=== PATIENT | female | born 2000 | race Caucasian/White ===

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

== ENCOUNTER 2022-05-07 17:23 | Outpatient (REF) | payer MEDICAID, SELFPAY ==
[2022-05-09 15:32] LABS: Chlamydia Result Negative (Negative); GC Result Negative (Negative)
== END 2022-05-07 17:24 | disposition home or self-care (01) ==
LOC: LBN 17:23
PROVIDERS: PCP Nurse Practitioner Pediatrics; Visit Provider Advanced Practice Midwife
DX: N89.8 Other specified noninflammatory disorders of vagina (principal); Z11.3 Encounter for screening for infections with a predominantly sexual mode of transmission
CPT/HCPCS: 87491; 87591; 87480; 87510; 87660

== ENCOUNTER 2022-05-30 06:16 | Emergency (ER) | payer MEDICAID, SELFPAY ==
--- NOTE | 2022-05-30 06:15 | RT.EKG_ITS ---
APPROVED REPORT Exam: Resting ECG Reason for Exam: chest pain Patient Location: E HR:65 bpm ECG Measurements Heart Rate 65 AXIS HI 141 P 58 QRSd 84 QRS 69 QT 386 T 38 QTc 402 Conclusion Sinus rhythm...normal P axis, V-rate 60- 99
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
[2022-05-30 06:48] VITALS: BP 132/77; PULSE 66; RESP 16; TEMP 36.9; O2SAT 97
[2022-05-30 07:20] LABS: Abs Immature Grans 0.02 10^3/uL (0.0-0.06); Absolute Basophil Count 0.02 10^3/uL (0.0-0.2); Absolute Lymphocyte Count 2.11 10^3/uL (1.2-3.4); Absolute Monocyte Count 0.44 10^3/uL (0.1-0.8); Absolute Neutrophil Count 5.78 10^3/uL (1.2-6.7); Basophils % 0.2; Eosinophils % 1.2; HCT 40.8 % (36.0-46.0); HGB 13.1 g/dL (11.2-15.7); Immature Grans % 0.2; Lymphocytes % 24.9; MCHC 32.1 % (32.0-36.0); MCV 94 fL (80-95); Monocytes % 5.2; Neutrophils % 68.3; Platelet Count 309 10^3/uL (130-400); RBC 4.36 10^6/uL (3.93-5.22); RDW 12.7 % (11.7-14.6); RDW-SD 43.9 fL; WBC 8.47 10^3/uL (4.4-10.8)
[2022-05-30 07:53] LABS: D-Dimer 149 ng/mlFEU (<500)
[2022-05-30 08:12] LABS: ALT 44 U/L (14-59); AST 21 U/L (15-37); Alkaline Phosphatase 82 U/L (46-116); Anion Gap 8.2 mmol/L (3-11); BUN 9 mg/dL (7-18); Bilirubin, Total 0.3 mg/dL (0.2-1.0); CO2 26.8 mmol/L (21.0-32.0); CREATININE 0.8 mg/dL (0.55-1.02); Calcium 9.3 mg/dL (8.5-10.1); Chloride 104 mmol/L (98-107); Estimated GFR 108.11 (mL/min/1.73m2); Glucose 92 mg/dL (74-106); Magnesium 1.8 mg/dL (1.8-2.4); Potassium 4.1 mmol/L (3.5-5.1); Sodium 139 mmol/L (136-145); Total Protein 7.4 g/dL (6.4-8.2); Troponin I < 50 ng/L (<or=60)
--- NOTE | 2022-05-30 08:30 | DI.RAD_ITS ---
Exam(s) XR CHEST 2V PA LATERAL EXAM: XR CHEST 2V PA LATERAL CLINICAL HISTORY: left chest pain TECHNIQUE: 2D digital imaging was performed. COMPARISON: No exams were available for comparison FINDINGS: The heart is not enlarged. The lungs are clear and well expanded. No pleural effusion seen. Mediastin al contours appear intact. IMPRESSION: Normal chest. RADIATION DOSE DELIVERED: Total DLP
--- NOTE | 2022-05-30 09:26 | W.EDPROG ---
Date of service: 05/30/22 Time of Service: 09:26 Medical Decision Making labs and imaging unremarkable, patient pain free and stable, clear lung sounds, soft nontender abdomen. Given pain started last night do not feel delta troponin indicated, heart score less then 3 so appropriate for outpatient management, adivsed to f/u with pcp and return precautions given Imaging Data Radiologic Study: Attestation: I personally reviewed and interpreted this imaging study as follows: Imaging: X-Ray Radiologist's impression: no acute findings Lab Data Lab results reviewed: Yes I reviewed the patient's lab results. Sign Out Sign Out Data: Sign Out Comment: Follow-up labs and chest x-ray and reassess patient for disposition Last updated by Juan Graham MD at 05/30/22 07:55 Discharge Plan Disposition Patient Disposition: HOME Condition: Stable Discharge Details Clinical Impression: Chest pain Primary Care Provider: Pascual Joel ED Provider: Jeffrey Powers Home Meds and New Rx's Prescriptions: Continued Nexplanon 68 mg implant 1 implant SBD ONCE clotrimazole-betamethasone 1-0.05 % cream 1 applic topical BID 14 Days Qty: 45 3RF metronidazole 500 mg tablet 1 tab PO BID Label Comments: TAKE 1 TABLET BY MOUTH TWICE DAILY FOR 7 DAYS Discharge Instructions Instructions: Chest Pain (ED) Additional Instructions: your xray and blood work did not show concerning findings follow up with your primary care provider within 1 week if you feel more ill, have severe worsening pain or difficulty breathing return to the emergency department
[2022-05-30 09:30] VITALS: BP 103/89; PULSE 61; RESP 16; TEMP 36.8; O2SAT 99
== END 2022-05-30 09:38 | disposition home or self-care (01) ==
PROVIDERS: Student in an Organized Health Care Education/Training Program; Emergency Provider Emergency Medicine; PCP Nurse Practitioner Pediatrics
DX: R07.9 Chest pain, unspecified (principal); F17.290 Nicotine dependence, other tobacco product, uncomplicated
CPT/HCPCS: 36415; 80053; 81025; 93005; 99283; 71046; 83735; 84484; 85025; 85379; 93010; 99285

== ENCOUNTER 2024-01-28 04:38 | Emergency (ER) | payer MEDICAID, SELFPAY ==
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
[2024-01-28 04:38] VITALS: BP 142/75; PULSE 72; RESP 24; TEMP 36.6; O2SAT 98
[2024-01-28] MEDS: Omnipaque 350 MG/ML 100 ML BTL IJ (05:03)
[2024-01-28] MEDS: Normal Saline - Diluent 50 ML VIAL IJ (05:07)
[2024-01-28 05:13] LABS: Abs Immature Grans 0.04 10^3/uL (0.0-0.06); Absolute Basophil Count 0.02 10^3/uL (0.0-0.2); Absolute Eosinophil Count 0.25 10^3/uL (0.0-0.7); Absolute Lymphocyte Count 4.44 10^3/uL (1.2-3.4); Absolute Monocyte Count 0.49 10^3/uL (0.1-0.8); Absolute Neutrophil Count 7.02 10^3/uL (1.2-6.7); Basophils % 0.2 %; HCT 43.1 % (36.0-46.0); HGB 13.9 g/dL (11.2-15.7); Immature Grans % 0.3 %; Lymphocytes % 36.2 %; MCHC 32.3 % (32.0-36.0); MCV 96 fL (80-95); MPV 9.3 fL (8.0-11.0); Neutrophils % 57.3 %; Platelet Count 322 10^3/uL (130-400); RBC 4.49 10^6/uL (3.93-5.22); RDW 13.1 % (11.7-14.6); RDW-SD 46.5 fL; WBC 12.26 10^3/uL (4.4-10.8)
[2024-01-28] MEDS: Ondansetron 4 MG/2 ML VIAL IVP ×2 (05:20→08:19)
[2024-01-28 05:21] VITALS: PULSE 62; O2SAT 99
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
[2024-01-28 05:22] VITALS: BP 126/75; PULSE 59; PULSE 62; RESP 11; O2SAT 98
[2024-01-28 05:25] LABS: PTT Activated 27.2 sec (23.6-32.8); Prothrombin Time 9.8 sec (9.1-11.1)
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
[2024-01-28 05:31] VITALS: BP 122/66; PULSE 55; PULSE 60; RESP 17; O2SAT 97
[2024-01-28 05:32] VITALS: PULSE 68; RESP 25; O2SAT 97
[2024-01-28 05:33] LABS: ALT 48 U/L (14-59); AST 24 U/L (15-37); Albumin 4.3 g/dL (3.4-5.0); Alkaline Phosphatase 85 U/L (46-116); Anion Gap 13.5 mmol/L (3-11); BUN 7 mg/dL (7-18); Bilirubin, Total 0.3 mg/dL (0.2-1.0); CO2 23.5 mmol/L (21.0-32.0); CREATININE 0.8 mg/dL (0.55-1.02); Calcium 9.5 mg/dL (8.5-10.1); Chloride 106 mmol/L (98-107); ETHANOL BLOOD 59.8 mg/dL (<10); Estimated GFR 107.44 (mL/min/1.73m2); Glucose 116 mg/dL (74-106); Lipase 16 U/L (16-77); Potassium 3.5 mmol/L (3.5-5.1); Sodium 143 mmol/L (136-145); Total Protein 8.1 g/dL (6.4-8.2)
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
[2024-01-28] MEDS: ACETAMINOPHEN 1,000 MG/100 ML BTL 400 MG IVPB (05:40)
[2024-01-28] MEDS: Normal Saline 1,000 ML 1000 ML IV (06:01)
[2024-01-28] MEDS: Hydrogen Peroxide 3% 480 ML BTL (06:01)
[2024-01-28 06:48] LABS: Bilirubin Negative (Negative); Blood Trace-lysed (Negative); Clarity Sl Cloudy (Clear); Glucose Negative (Negative); Ketones Negative (Negative); Leukocyte Esterase Small (Negative); Nitrite Positive (Negative); Urobilinogen 0.2 mg/dL (Up to 0.2); pH 6.5 (5-8)
[2024-01-28 06:57] LABS: Bacteria Many HPF (Negative); C & S Indicated? Yes; Casts Negative LPF (Negative); Crystals Negative HPF (Negative); Epithelial Cells Few HPF (Negative); Mucus Negative (Negative); RBC 0-2 HPF (0-2)
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
[2024-01-28 07:01] LABS: *AMPHETAMINES SCREEN URINE Negative (Negative); *BARBITURATES SCREEN URINE Negative (Negative); *BENZODIAZEPINES SCREEN URINE Negative (Negative); Cannabinoids THC Positive (Negative); Cocaine Screen,Urine Negative (Negative); METHADONE URINE SCREEN Negative (Negative); OPIATES URINE SCREEN Negative (Negative)
[2024-01-28 07:05] LABS: Tricyclic Antidepressants Negative (Negative)
[2024-01-28] MEDS: Cephalexin 500 MG CAP PO (08:19)
[2024-01-28] MEDS: Ondansetron O.D.T. 4 MG TABEF, 3 TABS/BTL PO (08:19)
== END 2024-01-28 08:37 | disposition home or self-care (01) ==
PROVIDERS: Emergency Provider Student in an Organized Health Care Education/Training Program
DX: F10.120 Alcohol abuse with intoxication, uncomplicated (principal); S01.01XA Laceration without foreign body of scalp, initial encounter; N39.0 Urinary tract infection, site not specified; S06.0X0A Concussion without loss of consciousness, initial encounter; S00.03XA Contusion of scalp, initial encounter; F17.290 Nicotine dependence, other tobacco product, uncomplicated; Y90.2 Blood alcohol level of 40-59 mg/100 ml; V47.6XXA Car passenger injured in collision with fixed or stationary object in traffic accident, initial encounter; Z23 Encounter for immunization
CPT/HCPCS: 12001; 36415; 74177; 80053; 80307; 83690; 87077; 90471; 90715; 96361; 96365; 96375; 96376; 99285; 70450; 70486; 71260; 72125; 73610; 80320; 81003; 81015; 85025; 85610; 85730; 87086; 87186; J0131; J2405; J3490

== ENCOUNTER 2024-02-16 13:20 | Emergency (ER) | payer MEDICAID, SELFPAY ==
[2024-02-16 13:27] VITALS: BP 145/90; PULSE 86; RESP 16; TEMP 36.9; O2SAT 99
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
--- NOTE | 2024-02-16 16:08 | W.EDPROG ---
Date of service: 02/16/24 Time of Service: 16:00 Medical Decision Making Please see previous documentation for initial presentation and consult with surgery. Patient signed out to me pending surgical consult for concern of inappropriate wound healing and potential need for surgical revision. Spoke with Dr. Moyer whom stated that patient will go to the OR tomorrow for washout and revision. Patient instructed to be n.p.o. after midnight and that day surgery will contact her for arrival time. After discussion of diagnosis and plan of care patient has no further needs, questions, or concerns and states clear understanding to return to the emergency department for any worsening symptoms. This documentation was generated using Virtual Computer dictation system, please disregard any oddities of phrase or misspellings. Quality:SDOH Health Related Social Needs: Health related social needs risk of homeless, material hardship, food insecurity, transpo insecurity Exam Const General: cooperative, no acute distress and not ill appearing Orientation: alert, awake and oriented x3 HENMT Mouth: moist mucous membranes Resp Effort & Inspection: normal respiratory effort, able to speak in complete sentences and no respiratory distress Neuro General: patient alert, patient awake, patient oriented x3 and moves all extremities Sign Out Sign Out Data: Sign Out Comment: Dr. Moeyr coming to evaluate at 1600, complex partially healed R frontal/parietal scalp laceration Last updated by Diogo Brown PA at 02/16/24 15:37 Discharge Plan Disposition Patient Disposition: Home Discharge Details Clinical Impression: Laceration of scalp with complication Primary Care Provider: Unknown,Unknown ED Provider: Dread Salinas Home Meds and New Rx's Prescriptions: No Action Nexplanon 68 mg implant 1 implant subdermal ONCE Rx Instructions: as a single dose clotrimazole-betamethasone 1-0.05 % cream 1 applic topical BID 14 Days Qty: 45 3RF Discharge Instructions Additional Instructions: It is very important that you do not eat anything after midnight tonight. Day surgery department will contact you for arrival time and Dr. Moyer will be performing a procedure as discussed. If you have any new or significant worsening of symptoms feel free to return the emergency department for reassessment Referrals: Benita Moyer DO [OSTEOPATHIC DOCTOR] - 1 day Discharge Data Discharge Date/Time-TO BE ENTERED AT DEPARTURE: 02/16/24 16:30
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
== END 2024-02-16 16:30 | disposition home or self-care (01) ==
PROVIDERS: Emergency Provider Nurse Practitioner Family
DX: S01.01XD Laceration without foreign body of scalp, subsequent encounter; Z48.02 Encounter for removal of sutures; W19.XXXD Unspecified fall, subsequent encounter
CPT/HCPCS: 00123

== ENCOUNTER 2024-02-17 10:39 | Day surgery (SDC) | payer MEDICAID, SELFPAY ==
[2024-02-17] VITALS (15 sets, daily range): BP systolic 112–133; BP diastolic 57–95; PULSE 52–90; RESP 16–23; TEMP 35.9–36.6; O2SAT 96–100; BMI 35.6
[2024-02-17] MEDS: Lactated Ringers 1,000 ML 80 ML IV (11:11)
[2024-02-17] MEDS: Gabapentin 300 MG CAP 600 MG PO (11:12)
[2024-02-17] MEDS: Acetaminophen 500 MG TAB 1000 MG PO (11:12)
--- NOTE | 2024-02-17 11:22 | W.ANESPRE ---
General Info Date of Service Date Performed: 02/17/24 Height: 5 ft 3 in Weight: 91.1 kg Body Mass Index (BMI): 35.6 Surgical Procedure: Operation Date: 02/17/24 11:40 Proposed Procedure Side Surgeon p Drainage/Wound exploration and revision of right scalp wound dehisence Right Benita Moyer DO Meds Allergies and Home Medications Allergies Allergy/AdvReac Type Severity Reaction Status Date / Time No Known Allergies Allergy Unverified 02/17/24 10:46 Home Medication Medication Instructions Recorded clotrimazole-betamethasone 1 1 applic topical BID 2 weeks #45 05/07/22 %-0.05 % topical cream grams etonogestrel 68 mg subdermal 1 implant subdermal ONCE 07/15/22 implant (Nexplanon) Current Visit Medications: Current Medications Generic Name Dose Route Start Last Admin Trade Name Freq PRN Reason Stop Dose Admin Acetaminophen 1,000 mg 02/17/24 06:00 02/17/24 11:12 Acetaminophen 500 Mg Tab PO 03/18/24 23:59 1,000 mg PREOP GRACIA Administration Gabapentin 600 mg 02/17/24 06:00 02/17/24 11:12 Gabapentin 300 Mg Cap PO 03/18/24 23:59 600 mg PREOP GRACIA Administration Ringer's Solution 1,000 mls @ 80 mls/hr 02/17/24 06:00 02/17/24 11:11 IV 03/18/24 23:59 80 mls/hr INFUSION GRACIA Administration Cefazolin Sodium/Dextrose 2 gm in 50 mls @ 100 mls/hr 02/17/24 06:00 Ancef Duplex IVPB 03/18/24 23:59 PREOP GRACIA IV Miscellaneous Supplies 1 each 02/17/24 06:00 Iv Access IV 03/18/24 23:59 DIRECTED GRACIA Sodium Chloride 0 ml 02/17/24 06:00 Normal Saline Flush 10 Ml Syr IV 03/18/24 23:59 PRN PRN Sodium Chloride 0 ml 02/17/24 06:00 Normal Saline 10 Ml Vial IJ 03/18/24 23:59 DIRECTED PRN Sterile Water 0 ml 02/17/24 06:00 Water,Injection,Sterile 10 Ml Vial IJ 03/18/24 23:59 DIRECTED PRN PFSH Active Problems Active Problems: Problem Status Onset Code Smoker F17.200 Hematoma of frontal scalp S00.03XA Open wound T14.8XXA Laceration of scalp with complication S01.01XA Hematoma of parietal scalp S00.03XA Concussion S06.0XAA UTI (urinary tract infection) N39.0 Laceration of scalp S01.01XA Alcohol intoxication F10.929 Nexplanon insertion Z30.017 Other specified contraceptive management Z30.8 Weight gain R63.5 Tinea cruris B35.6 Epigastric abdominal pain R10.13 Nausea R11.0 Yeast vaginitis B37.3 Screen for STD (sexually transmitted disease) Z11.3 Acne L70.[address] Z97.5 General counseling and advice for contraceptive management Z30.09 Body mass index equal to or greater than 95th percentile for age in pediatric patient 12/15/14 Z68.54 Under-bite 12/15/14 M26.19 Routine child health exam 01/16/17 Z00.129 Menorrhagia 01/04/15 N92.0 BMI (body mass index), pediatric, 85% to less than 95% for age 0501/16/17 Z68.53 Academic underachievement 12/15/14 Z55.3 Medical History Medical History General counseling and advice for contraceptive management Migraine rare, vision loss with 1 of them Chronic constipation Febrile convulsion Tobacco Smoking/Tobacco Use Status: Current every day Tobacco Type: e-cigarettes Alcohol Alcohol Intake: current Alcohol intake frequency: holidays/special occasions only Substance Use Substance use type: marijuana Details: Yesterday Lase Dose Vital Signs and Lab Results Vital Signs Most Recent Vital Signs in EMR: Most Recent Vital Signs Temp Pulse Resp BP Pulse Ox 36.5 C 72 18 125/78 98 02/17/24 11:04 02/17/24 11:04 02/17/24 11:04 02/17/24 11:04 02/17/24 11:04 Point of Care Results Point of Care Results: POC- Test(urine) Negative 02/17/24 11:04 Lab Results Blood Type / Crossmatch: No Data to Display Complete Blood Count: White Blood Count 12.26 10^3/uL (4.4-10.8) H 01/28/24 05:00 Red Blood Count 4.49 10^6/uL (3.93-5.22) 01/28/24 05:00 Hemoglobin 13.9 g/dL (11.2-15.7) 01/28/24 05:00 Hematocrit 43.1 % (36.0-46.0) 01/28/24 05:00 Platelet Count 322 10^3/uL (130-400) 01/28/24 05:00 Complete Metabolic Panel: Sodium 143 mmol/L (136-145) 01/28/24 05:00 Potassium 3.5 mmol/L (3.5-5.1) 01/28/24 05:00 Chloride 106 mmol/L (98-107) 01/28/24 05:00 Carbon Dioxide 23.5 mmol/L (21.0-32.0) 01/28/24 05:00 BUN 7 mg/dL (7-18) 01/28/24 05:00 Creatinine 0.8 mg/dL (0.55-1.02) 01/28/24 05:00 Est GFR (CKD-EPI 2020) 107.44 (mL/min/1.73m2) 01/28/24 05:00 Calcium 9.5 mg/dL (8.5-10.1) 01/28/24 05:00 Albumin 4.3 g/dL (3.4-5.0) 01/28/24 05:00 Glucose 116 mg/dL (74-106) H 01/28/24 05:00 Liver Function Panel: Alanine Aminotransferase (ALT/SGPT) 48 U/L (14-59) 01/28/24 05:00 Aspartate Amino Transf (AST/SGOT) 24 U/L (15-37) 01/28/24 05:00 Coagulation Panel: INR International Normalized Ratio 1.0 (0.9-1.1) 01/28/24 05:00 Prothrombin Time 9.8 sec (9.1-11.1) 01/28/24 05:00 Activated Partial Thromboplast Time 27.2 sec (23.6-32.8) 01/28/24 05:00 Cardiac Panel: No Data to Display Arterial Blood Gas: No Data to Display Venous Blood Gas: No Data to Display Pancreas Panel: Lipase 16 U/L (16-77) 01/28/24 05:00 Thyroid Panel: No Data to Display Infectious Disease: No Data to Display Blood Cultures: No Data to Display Toxicology Panel: Ethyl Alcohol Level 59.8 mg/dL (<10) H 01/28/24 05:00 Urine Amphetamines Screen Negative (Negative) 01/28/24 06:30 Urine Benzodiazepines Screen Negative (Negative) 01/28/24 06:30 Urine Barbiturates Screen Negative (Negative) 01/28/24 06:30 Urine Cocaine Screen Negative (Negative) 01/28/24 06:30 Urine Methadone Screen Negative (Negative) 01/28/24 06:30 Urine Opiates Screen Negative (Negative) 01/28/24 06:30 Ur Tricyclic Antidepressants Screen Negative (Negative) 01/28/24 06:30 Ur Tetrahydrocannabinol (THC) Scrn Positive (Negative) A 01/28/24 06:30 Panel: No Data to Display Imaging and Studies Imaging and Studies Study information below may be from another EMR and interpreted by another provider. Please see original notes in EMR for more complete details. EKG Summary: 05/30/22: Exam: Resting ECG Reason for Exam: chest pain Patient Location: E HR:65 bpm ECG Measurements Heart Rate 65 AXIS CO 141 P 58 QRSd 84 QRS 69 QT 386 T38 QTc 402 Conclusion Sinus rhythm...normal P axis, V-rate 60- 99 I have reviewed and I agree with the emergency room physician's ECG interpretation. Anesthesia Assessment and Plan Anesthesia History Personal History: No History of General Anesthesia Family History: No Family History of Anesthesia Complications Exercise Tolerance Exercise Tolerance: Metabolic Equivalents>4 Pertinent Negatives Pertinent Negatives: No Symptoms of GERD, No Major Cardiovascular Symptoms or Complaints and No Major Pulmonary Symptoms or Complaints Cardiac & Pulmonary Exam Cardiac Exam: Normal S1/S2 Heart Sounds Pulmonary Exam: Clear Bilateral Breath Sounds Implantable Cardiac Device Does patient have a Pacemaker or an ICD?: No Airway Exam Known Difficult Airway: No Mallampati Class: 2 Mouth Opening: Normal (> 3cm) Thyromental Distance: Greater than 3 cm Neck Range of Motion: Full ROM Neck Circumference: Normal Teeth Condition: Normal Dentition Airway Comments: Significant underbite ASA Classification ASA Score: ASA 2 Emergency Case?: No NPO Status NPO Status: NPO Clears >2 hours, Solids >8 hours Status Status: Negative HCG Anesthesia Plan Resuscitation Status: Full Code Anesthesia Technique: General Anesthesia Airway Planned: Endotracheal Tube Monitors Used: Standard Monitors
[2024-02-17] MEDS: ceFAZolin 2 GM/50 ML BAG IVPB (13:00)
[2024-02-17] MEDS: Lidocaine 1% Multi-Dose W/EPI 1/100,000 50 ML VIAL (13:11)
--- NOTE | 2024-02-17 14:25 | W.ANESPOSTOP ---
Postoperative Evaluation Date, Time and Location Date Performed: 02/17/24 Time Performed: 14:21 Patient Location: PACU Vital Signs Most Recent Imported Vital Signs: Most Recent Vital Signs Temp Pulse Resp BP Pulse Ox 36.5 C 81 18 133/92 H 97 02/17/24 14:20 02/17/24 14:20 02/17/24 14:20 02/17/24 14:20 02/17/24 14:20 Pain Score Most Recent Pain Score: Most Recent Pain Score Pain Level 2 02/17/24 14:20 Assessment Mental Status: Awake (Alert & Oriented to Patient Baseline) Airway and Respiratory Function: Patent airway with normal (patient baseline) respiratory exam Cardiovascular Function: Hemodynamically Stable Hydration Status: Adequately Hydrated Nausea & Vomiting: No Nausea or Vomiting Pain: Pain is tolerable per patient Peripheral Nerve Block: Patient did not receive a nerve block
--- NOTE | 2024-02-17 14:43 | W.PM.DSUDISC ---
Date of service: 02/17/24 Time of Service: 14:43 Discharge Plan Disposition Patient Disposition: Home Condition: Good Discharge Details Attending Provider: Benita Moyer Primary Care Provider: Unknown,Unknown Home Meds and New Rx's Prescriptions: No Action Nexplanon 68 mg implant 1 implant subdermal ONCE Rx Instructions: as a single dose clotrimazole-betamethasone 1-0.05 % cream 1 applic topical BID 14 Days Qty: 45 3RF Discharge Instructions Additional Instructions: Post-Op Instructions Instructions for Everyone who is given Anesthesia: For your safety, please do the following for the next twenty-four (24) hours: *Do Not operate a motor vehicle (car, truck, motorcycle, etc.) *Do Not drink alcoholic beverages or use any recreational drugs for the first 24 hours or while taking pain medications. The medications in your body may have a reaction that can be dangerous. *Do Not make any important decisions or sign any important papers. Follow up: Friday02/23/24 @ 10:45 ACTIVITY: The day of surgery should be spent resting. However, you can be up for short periods of time, I.E., going to the bathroom or kitchen. Avoid lifting or straining. On the day following surgery, you can be up and about as desired. ? LIFTING: Restrict your lifting to no more than five (5) pounds for two weeks after surgery. ??We will decide when you are done with restrictions and when you can return to work, at your follow-up appointment.? ? DIET: There are no dietary restrictions following surgery. However, you may want to start with small amounts of liquids to avoid nausea the day of surgery. ? INCISION CARE: Your health care provider has covered your wound with a wet-to-dry dressing. With this type of dressing, a wet (or moist) gauze dressing is put on your wound and allowed to dry. Wound drainage and tissue can be removed when you take off the old dressing. Follow any instructions you are given on how to change the dressing. Use this sheet as a reminder. What to Expect at Home Your provider will tell you how often you should change your dressing at home. As the wound heals, you should not need as much gauze or packing gauze. Removing the Old Dressing Follow these steps to remove your dressing: ? Wash your hands thoroughly with soap and warm water before and after each dressing change. Remove the old dressing. If it is sticking to your skin, wet it with warm water to loosen it. -Shower as you normally would. Avoid getting shampoo in the wound- it will burn! ? Changing Your Dressing Follow these steps to put a new dressing on: ? Place the packing tape in your wound. Carefully fill in the wound and any spaces under the skin.? Use a cotton tip applicator to gently push the packing material into the wound. ? Cover the wet gauze or packing tape with a large dry dressing pad. Use tape hat to hold this dressing in place. ? Wash your hands again when you are finished. When to Call the Doctor Call your doctor if you have any of these changes around your wound: ? Worsening redness ? More pain ? Swelling ? Bleeding ? It is larger or deeper ? It looks dried out or dark ? The drainage is increasing ? The drainage has a bad smell Also call your doctor if: ? Your temperature is 100.5?F (38?C), or higher, for more than 4 hours ? Drainage is coming from or around the wound ? Drainage is not decreasing after 3 to 5 days ? Drainage is increasing ? Drainage becomes thick, stafford, yellow, or smells bad ? SIGNS OF INFECTION: It is not unusual to have some black and blue discoloration of the skin around the incision..? ?It will slowly disappear. If you have any increased redness, drainage, fever (above 100 degrees), please contact your doctor for an examination. ? DISCOMFORT: You may expect to have some mild discomfort at the incision sight. If severe pain develops you should contact your doctor for further instructions. ? DRIVING: NO driving for three (3) days after surgery, or if you are still taking narcotic pain medication.? ? MEDICATIONS: Alternate Tylenol 1000mg by mouth every 8 hours and Ibuprofen 600mg every 6 hours. ?Make sure you take ibuprofen with food and not on an empty stomach. ?Take the Tylenol and ibuprofen continuously for the first 72hrs- not just when you have pain.? Use the tramadol for breakthrough pain/pain >7.? Use ICE!?? Twenty minutes on, and then off, continuously for the first 72hours. If you are taking narcotic pain medication, follow the instructions on the label and do not drive. Pain medications can make you very constipated. Make sure you are moving your bowels daily. If not, take Miralax or Milk of Magnesia.?? Anesthesia makes you very constipated.? Take a dose of milk of magnesia the morning after surgery. ? REPORT: Unusual swelling, severe pain, unresolved nausea, signs of infection, or difficulty in urination to your surgeon. Follow up in clinic with Dr. Moyer as above? [phone] 5. If there are questions regarding the findings of your procedure, please contact your doctor 6. If you are unable to contact your doctor with a problem, contact the hospital at [phone]. 7. Continue all your regular medications unless directed otherwise. I understand the above instructions and have no questions. Signature of Patient or Adult Escort Name of Responsible Adult Escort Signature of Nurse Date/Time Stand Alone Forms: Anesthesia Discharge JaclynFaith [place] (DSU) Activity:: see above Remove Dressings/Wound Care:: 24 hours Shower/Bathe:: 24 hours Diet:: As Tolerated DS: Diagnosis Discharge Diagnosis (1) Foreign body head: Status: Acute (2) Laceration of scalp: Status: Acute (3) Laceration of scalp with complication: Status: Acute Asessment and Plan: The patient is doing well post-op from their evacuation of hematoma and wound revision of scalp. they are having no nausea or vomiting. They are tolerating liquids and a snack. The pt is not having any chest pain or SOB.? Their pain is adequately controlled. They have been able to urinate.? ?HEENT:? no eye pain/drainage/redness/swelling. Mild sore throat ?Cardio- NSR, no chest pain, BP stable- see VS record ?Pulm: no sob or productive cough. No hemoptysis ?Incision- dressing is c/d/i w/ no excessive bleeding or drainage ?I discussed with the patient the findings at the time of surgery and the patient?s progress. ?We reviewed expectations at home; what the patient could expect for recovery time, and in the post-operative period.? We discussed the importance of walking to avoid blood clots and pneumonia.? We discussed and reviewed the patient's post-operative wound care and dressing needs.?? We reviewed their step-conte pain management plan, Rx called to the pharmacy of their choice.? We reviewed activity and limitations-see discharge instructions. We reviewed warning signs, and when to seek medical attention- see d/c instructions.?? Patient was given a postoperative follow-up appointment. Patient verbalized understanding of their postoperative instructions, how do to take care of themselves and their incision, and the pain management plan. Please see discharge instructions.? (4) Open wound: Status: Acute (5) Hematoma of frontal scalp: Status: Acute
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
[2024-02-17] MEDS: Ketorolac 15 MG/ML VIAL IVP (15:05)
--- NOTE | 2024-02-17 15:08 | PDOC.DSDIS_ITS ---
Date of service: 02/17/24 Time of Service: 15:08 Discharge Plan Disposition Patient Disposition: Home Condition: Good Discharge Details Attending Provider: Benita Moyer Primary Care Provider: Unknown,Unknown Home Meds and New Rx's Prescriptions: No Action Nexplanon 68 mg implant 1 implant subdermal ONCE Rx Instructions: as a single dose clotrimazole-betamethasone 1-0.05 % cream 1 applic topical BID 14 Days Qty: 45 3RF Discharge Instructions Additional Instructions: Post-Op Instructions Instructions for Everyone who is given Anesthesia: For your safety, please do the following for the next twenty-four (24) hours: *Do Not operate a motor vehicle (car, truck, motorcycle, etc.) *Do Not drink alcoholic beverages or use any recreational drugs for the first 24 hours or while taking pain medications. The medications in your body may have a reaction that can be dangerous. *Do Not make any important decisions or sign any important papers. Follow up: Friday02/23/24 @ 10:45 ACTIVITY: The day of surgery should be spent resting. However, you can be up for short periods of time, I.E., going to the bathroom or kitchen. Avoid lifting or straining. On the day following surgery, you can be up and about as desired. ? LIFTING: Restrict your lifting to no more than five (5) pounds for one weeks after surgery. ??We will decide when you are done with restrictions and when you can return to work, at your follow-up appointment.? ? DIET: There are no dietary restrictions following surgery. However, you may want to start with small amounts of liquids to avoid nausea the day of surgery. ? INCISION CARE: Your health care provider has covered your wound with a wet-to-dry dressing. With this type of dressing, a wet (or moist) gauze dressing is put on your wound and allowed to dry. Wound drainage and tissue can be removed when you take off the old dressing. Follow any instructions you are given on how to change the dressing. Use this sheet as a reminder. What to Expect at Home Your provider will tell you how often you should change your dressing at home. As the wound heals, you should not need as much gauze or packing gauze. Removing the Old Dressing Follow these steps to remove your dressing: ? Wash your hands thoroughly with soap and warm water before and after each dressing change. Remove the old dressing. If it is sticking to your skin, wet it with warm water to loosen it. -Shower as you normally would. Avoid getting shampoo in the wound- it will burn! ? Changing Your Dressing Follow these steps to put a new dressing on: ? Place the packing tape in your wound. Carefully fill in the wound and any spaces under the skin.? Use a cotton tip applicator to gently push the pa cking material into the wound. ? Cover the wet gauze or packing tape with a large dry dressing pad. Use tape hat to hold this dressing in place. ? Wash your hands again when you are finished. When to Call the Doctor Call your doctor if you have any of these changes around your wound: ? Worsening redness ? More pain ? Swelling ? Bleeding ? It is larger or deeper ? It looks dried out or dark ? The drainage is increasing ? The drainage has a bad smell Also call your doctor if: ? Your temperature is 100.5?F (38?C), or higher, for more than 4 hours ? Drainage is coming from or around the wound ? Drainage is not decreasing after 3 to 5 days ? Drainage is increasing ? Drainage becomes thick, stafford, yellow, or smells bad ? SIGNS OF INFECTION: It is not unusual to have some black and blue discoloration of the skin around the incision..? ?It will slowly disappear. If you have any increased redness, drainage, fever (above 100 degrees), please contact your doctor for an examination. ? DISCOMFORT: You may expect to have some mild discomfort at the incision sight. If severe pain develops you should contact your doctor for further instructions. ? DRIVING: NO driving for 24 hrs after surgery. ? MEDICATIONS: Alternate Tylenol 1000mg by mouth every 8 hours and Ibuprofen 600mg every 6 hours. ?Make sure you take ibuprofen with food and not on an empty stomach. ?Take the Tylenol and ibuprofen continuously when you have pain.? Use ICE!?? Twenty minutes on, and then off, continuously for the first 72hours. If you are taking narcotic pain medication, follow the instructions on the label and do not drive. Pain medications can make you very constipated. Make sure you are moving your bowels daily. If not, take Miralax or Milk of Magnesia.?? Anesthesia makes you very constipated.? Take a dose of milk of magnesia the morning after surgery. ? REPORT: Unusual swelling, severe pain, unresolved nausea, signs of infection, or difficulty in urination to your surgeon. Follow up in clinic with Dr. Moyer as above? [phone] 5. If there are questions regarding the findings of your procedure, please contact your doctor 6. If you are unable to contact your doctor with a problem, contact the hospital at [phone]. 7. Continue all your regular medications unless directed otherwise. I understand the above instructions and have no questions. Signature of Patient or Adult Escort Name of Responsible Adult Escort Signature of Nurse Date/Time Stand Alone Forms: Anesthesia Discharge , Faith [place] (DSU) Activity:: see above Remove Dressings/Wound Care:: 24 hours Shower/Bathe:: 24 hours Diet:: As Tolerated Discharge Orders Discharge Orders: Discharge Order (Routine); Ordered 02/17/24 Ordered By: Benita Moyer DS: Diagnosis Discharge Diagnosis (1) Foreign body head: Status: Acute (2) Laceration of scalp: Status: Acute (3) Laceration of scalp with complication: Status: Acute (4) Open wound: Status: Acute (5) Hematoma of frontal scalp: Status: Acute
== END 2024-02-17 15:37 | disposition home or self-care (01) ==
PROVIDERS: Visit Provider Surgery
PROC: (CPT 10121; principal; 2024-02-17 11:30)
DX: T81.31XA Disruption of external operation (surgical) wound, not elsewhere classified, initial encounter (principal); Z18.89 Other specified retained foreign body fragments; S01.00XA Unspecified open wound of scalp, initial encounter; V89.2XXA Person injured in unspecified motor-vehicle accident, traffic, initial encounter
CPT/HCPCS: 10121; 81025; J0690; J1100; J1171; J1885; J2001; J2004; J2250; J2405; J2704; J3010

== ENCOUNTER 2024-08-13 18:08 | Emergency (ER) | payer MEDICAID, SELFPAY ==
[2024-08-13 18:12] VITALS: BP 127/88; PULSE 110; RESP 14; TEMP 36.4; O2SAT 96
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
[2024-08-13] MEDS: Cephalexin 500 MG CAP PO (18:53)
[2024-08-13] MEDS: Cephalexin 500 MG CAP, 2 CAPS/BTL PO (18:53)
[2024-08-13] MEDS: Clotrimazole 1% 15 GM TUBE TP (19:38)
== END 2024-08-13 19:40 | disposition home or self-care (01) ==
LOC: ER 19:10
PROVIDERS: Emergency Provider Registered Nurse Emergency
DX: L03.115 Cellulitis of right lower limb; B35.3 Tinea pedis
CPT/HCPCS: 99283

== ENCOUNTER 2025-02-07 09:17 | Outpatient (REF) | payer MEDICAID, SELFPAY ==
--- NOTE | 2025-02-07 09:15 | PAPFT_PTH ---
PATIENT: Vangie Hall LOC: [facility] U#:[id number] AGE/SX: 24/F ROOM: RE02/07/[address]: Wendie Powers NP : 2000 BED: DIS: 02/07/2025 SPEC #: [id number] RECD: 02/07/25 13:25 STATUS: JAGRUTI NAYLOR #: [id number] HAMMAD: 02/07/25 09:[address]: Wendie Powers NP DEPT: [facility] Cytology RECD BY: Marta Dyson ENTERED: 02/07/25 13:25 SP TYPE: PAPFT OTHR DR: None Tissues: 1 - CX/ENDOCX FOR PAP SMEARS Procedures: PAP THIN PREP/[facility] Screening Comments: [id number] (CHLAMYDIA/GC)
[2025-02-08 15:08] LABS: Chlamydia Result Negative (Negative); GC Result Negative (Negative)
== END 2025-02-07 09:18 | disposition home or self-care (01) ==
LOC: LBN 09:17
PROVIDERS: Visit Provider Nurse Practitioner Women's Health
DX: Z12.4 Encounter for screening for malignant neoplasm of cervix (principal); N76.0 Acute vaginitis
CPT/HCPCS: 87491; 87591; 88142